=== PATIENT | female | born 1985 | race Caucasian/White ===

== ENCOUNTER 2019-05-02 16:18 | Emergency (ER) | payer MEDICAID ==
[~2019-05-02] VITALS: Ht 162.6 cm; Wt 75.0 kg
[2019-05-02 16:20] VITALS: BP 125/81
--- NOTE | 2019-05-02 16:25 | NUR ---
PATIENT AMBULATED TO ER BED 9.
--- NOTE | 2019-05-02 16:37 | NUR ---
PT C/O L LOWER GROIN PAIN X1 DAY, REPORTS 9/10 POKING PAIN. DENIES N/V/D. DENIES PMH NKA . DENIES N/V/D; SKIN IS PINK/WARM/DRY; AAOX4 WITH EVEN AND STEADY GAIT; LUNGS CLEAR BL; HR EVEN AND REGULAR; PT DENIES ANY FEVER, CP, SOB, OR COUGH AT THIS TIME; PATIENT STATES PAIN OF 9/10 AT THIS TIME; VSS; PATIENT POSITIONED FOR COMFORT; HOB ELEVATED; BEDRAILS UP X2; BED DOWN. ER MD MADE AWARE OF PT STATUS.
--- NOTE | 2019-05-02 18:15 | NUR ---
US TECH AT BEDSIDE.
[2019-05-02 18:44] LABS: BASOPHILS % (AUTO) 0.4 % (0.0-2.0); EOSINOPHILS % (AUTO) 0.5 % (0.0-4.0); HEMATOCRIT 36.1 % (36-48); HEMOGLOBIN 12.3 g/dL (12.0-16.0); LYMPHOCYTES # (AUTO) 2.8 K/uL (2.5-16.5); LYMPHOCYTES % (AUTO) 32.7 % (20.5-51.1); MEAN CORPUSCULAR HEMOGLOBIN 30 pg (27-31); MEAN CORPUSCULAR HGB CONC 34 g/dL (33-37); MEAN CORPUSCULAR VOLUME 88.8 fL (80-94); MONOCYTES # (AUTO) 0.5 K/uL (0.8-1.0); MONOCYTES % (AUTO) 5.3 % (1.7-9.3); NEUTROPHILS # (AUTO) 5.3 K/uL (1.8-7.7); NEUTROPHILS % (AUTO) 61.1 % (42.2-75.2); PLATELET COUNT (AUTO) 320 K/uL (140-450); RED BLOOD CELL COUNT(AUTO) 4.07 MIL/uL (4.20-5.40); RED CELL DISTRIBUTION WIDTH 13.1 % (11.6-13.7); WHITE BLOOD COUNT (AUTO) 8.7 K/uL (4.8-10.8)
[2019-05-02] MEDS ORDERED: KETOROLAC 15 MG/ML VIAL IM ONE (19:05)
[2019-05-02 19:06] LABS: ANION GAP 11.3 (8-16); CARBON DIOXIDE 29.3 mmol/L (21-32); CREATININE 0.6 mg/dL (0.6-1.3); POTASSIUM 3.6 mmol/L (3.5-5.1)
[2019-05-02 19:12] LABS: ALBUMIN 3.7 g/dL (3.4-5.0); TOTAL BILIRUBIN 0.3 mg/dL (0.0-1.0)
--- NOTE | 2019-05-02 19:15 | NUR ---
RECEIVED REPORT FROM BERNICE THOMPSON. TRANSFER OF CARE AT THIS TIME.
--- NOTE | 2019-05-02 19:44 | NUR ---
PT IS AWAKE, ALERT, REPORTS DECREASE IN PAIN TO 5/10. RESTING COMFORTABLY IN BED.
--- NOTE | 2019-05-02 20:37 | NUR ---
SECOND CALL TO LAB ABOUT UA STATUS. LAB STATES THEY DO NOT HAVE THE UA. I ADVISED THEM IT HAS BEEN COLLECTED SINCE 1750. LAB STATES THEY DO NOT HAVE IT. PT ADVISED TO COLLECT A NEW UA. UA WALKED OVER TO LAB.
--- NOTE | 2019-05-02 20:39 | NUR ---
NEW URINE SAMPLE COLLECTED AND WALKED TO LAB BY EMT.
[2019-05-02 20:54] LABS: APPEARANCE,URINE CLEAR (CLEAR); BILIRUBIN,URINE NEGATIVE (NEGATIVE); BLOOD, URINE 2+ (NEGATIVE); COLOR,URINE YELLOW (YELLOW); LEUKOCYTE ESTERASE ,URINE NEGATIVE (NEGATIVE); NITRITE, URINE NEGATIVE (NEGATIVE); PH,URINE 7.5 (5.0-9.0); UGLUCOSE NEGATIVE (NEGATIVE)
[2019-05-02 21:01] LABS: RBC,URINE 0-5 /HPF (0-5); WBC,URINE 0-5 /HPF (0-5)
--- NOTE | 2019-05-02 21:30 | NUR ---
Patient appears to be resting comfortably in bed. Vital Signs within normal limits. Respirations even and unlabored.
[2019-05-02 22:55] VITALS: BP 112/72
--- NOTE | 2019-05-02 22:55 | NUR ---
Patient discharged with v/s stable. Written and verbal after care instructions given and explained. Patient alert, oriented and verbalized understanding of instructions. Ambulatory with steady gait. All questions addressed prior to discharge. ID band removed. Patient advised to follow up with PMD. Rx of [place], Bactrim and Naprosyn given. Patient educated on indication of medication including possible reaction and side effects. Opportunity to ask questions provided and answered.
== END 2019-05-02 22:55 | disposition home or self-care (01) ==
LOC: MED 16:18
DX: N83.201 Unspecified ovarian cyst, right side (principal); N30.90 Cystitis, unspecified without hematuria
CPT/HCPCS: 36415; 76830; 80053; 81001; 81025; 83690; 85025; 87086; 96372; 99284; J1885; Q0092

== ENCOUNTER 2019-07-04 17:32 | Emergency (ER) | payer MEDICAID ==
[~2019-07-04] VITALS: Ht 160 cm; Wt 76.7 kg
[2019-07-04 17:50] VITALS: BP 123/75
--- NOTE | 2019-07-04 19:38 | NUR ---
CALLED FOR PT, NO ANSWER IN ER LOBBY OR IN FRONT OF ER. PT LWBS AT 1938
--- NOTE | 2019-07-04 19:45 | NUR ---
CALLED FOR PT FOR SECOND TIME, NO ANSWER IN ER LOBBY OR IN FRONT OF ER. PT LWBS AT 1938
--- NOTE | 2019-07-04 20:00 | NUR ---
CALLED FOR PT FOR THIRD TIME, NO ANSWER IN ER LOBBY OR IN FRONT OF ER. PT LWBS AT 1938
== END 2019-07-04 19:38 | disposition left against medical advice (07) ==
LOC: MED 17:32
DX: R10.32 Left lower quadrant pain (principal); R10.31 Right lower quadrant pain; Z53.21 Procedure and treatment not carried out due to patient leaving prior to being seen by health care provider
CPT/HCPCS: 81002; 81025

== ENCOUNTER 2019-08-14 08:28 | Emergency (ER) | payer MEDICAID ==
[~2019-08-14] VITALS: Ht 149.9 cm; Wt 79.4 kg
[2019-08-14 08:33] VITALS: BP 133/85
[2019-08-14] MEDS ORDERED: KETOROLAC 60 MG/2 ML VIAL IM ONE (08:45)
--- NOTE | 2019-08-14 08:55 | NUR ---
pt arrived to ed by self c/o abd pain x 1 day and left hand pain x 2days s/p mechanical fall. pt states left hand pain radiates to left shoulder and rates pain level 9/10. vs table. a &o x4. denies n,v,d. abd soft, nontender, flat. left hand sowllen and red. left hand has cms intact. no deformity noted. pmh: denies nka.
--- NOTE | 2019-08-14 08:56 | NUR ---
radiology at bedside to picker and sorter load and unload pt. trasnferred on wheelchair to radiology
[2019-08-14 09:37] VITALS: BP 133/85
--- NOTE | 2019-08-14 09:38 | NUR ---
Patient discharged with v/s stable. Written and verbal after care instructions given and explained. Patient alert, oriented and verbalized understanding of instructions. Ambulatory with steady gait. All questions addressed prior to discharge. ID band removed. Patient advised to follow up with PMD. Rx of motrin, lactulose, mineral oil given. Patient educated on indication of medication including possible reaction and side effects. Opportunity to ask questions provided and answered.
== END 2019-08-14 09:38 | disposition home or self-care (01) ==
LOC: MED 08:28
DX: S63.92XA Sprain of unspecified part of left wrist and hand, initial encounter (principal); S40.012A Contusion of left shoulder, initial encounter; K59.00 Constipation, unspecified; W01.0XXA Fall on same level from slipping, tripping and stumbling without subsequent striking against object, initial encounter; Y93.89 Activity, other specified; Y92.89 Other specified places as the place of occurrence of the external cause; Y99.8 Other external cause status
CPT/HCPCS: 73130; 74018; 81002; 81025; 96372; 99283; J1885

== ENCOUNTER 2019-10-30 19:09 | Emergency (ER) | payer MEDICAID ==
[~2019-10-30] VITALS: Ht 165.1 cm; Wt 77.1 kg
--- NOTE | 2019-10-30 19:24 | NUR ---
URINE SAMPLE COLLECTED.
--- NOTE | 2019-10-30 19:25 | NUR ---
AMB TO LOBBY WITH DAUGHTER.
[2019-10-30 19:29] VITALS: BP 104/54
--- NOTE | 2019-10-30 19:30 | NUR ---
PATIENT AMBULATED TO BED 3.
--- NOTE | 2019-10-30 19:30 | NUR ---
34 Y/O FEMALE BIB DAUGHTER WITH REPORTS OF SUDDEN ONSET OF LEFT FLANK PAIN AROUND 1200 TODAY. STATES IT IS A STABBING PAIN. DENIES PAINFUL URINATION OR FREQUENCY. PAIN IS AN ACUTE 5/10 PAIN. DENIES N/V/D. BREATHING UNLABORED AND SYMMETRICAL. BOWEL SOUNDS ON ALL FOUR QUADRANTS. NO TENDERNESS UPON PALPATION. ERMD MADE AWARE OF STATUS. SIDE RAILSX1. WILL CONTINUE TO MONITOR. PMH:DENIES RX:DENIES NKDA
[2019-10-30 20:33] LABS: BASOPHILS % (AUTO) 0.4 % (0.0-2.0); EOSINOPHILS # (AUTO) 0.1 K/uL (0-0.4); EOSINOPHILS % (AUTO) 0.8 % (0.0-4.0); HEMATOCRIT 35.6 % (36-48); HEMOGLOBIN 12.3 g/dL (12.0-16.0); LYMPHOCYTES # (AUTO) 3.2 K/uL (2.5-16.5); LYMPHOCYTES % (AUTO) 31.4 % (20.5-51.1); MEAN CORPUSCULAR HEMOGLOBIN 31 pg (27-31); MEAN CORPUSCULAR HGB CONC 35 g/dL (33-37); MEAN CORPUSCULAR VOLUME 89.4 fL (80-94); MONOCYTES # (AUTO) 0.7 K/uL (0.8-1.0); MONOCYTES % (AUTO) 6.7 % (1.7-9.3); NEUTROPHILS # (AUTO) 6.2 K/uL (1.8-7.7); NEUTROPHILS % (AUTO) 60.7 % (42.2-75.2); PLATELET COUNT (AUTO) 327 K/uL (140-450); RED BLOOD CELL COUNT(AUTO) 3.98 MIL/uL (4.20-5.40); RED CELL DISTRIBUTION WIDTH 13.2 % (11.6-13.7); WHITE BLOOD COUNT (AUTO) 10.3 K/uL (4.8-10.8)
[2019-10-30 20:38] LABS: APPEARANCE,URINE CLEAR (CLEAR); BILIRUBIN,URINE NEGATIVE (NEGATIVE); BLOOD, URINE 3+ (NEGATIVE); COLOR,URINE YELLOW (YELLOW); LEUKOCYTE ESTERASE ,URINE NEGATIVE (NEGATIVE); NITRITE, URINE POSITIVE (NEGATIVE); UGLUCOSE NEGATIVE (NEGATIVE)
[2019-10-30 20:46] LABS: WBC,URINE 0-5 /HPF (0-5)
[2019-10-30] MEDS ORDERED: ACETAMINOPHEN EXTRA STRENGTH 500 MG TAB PO ONE (21:30)
[2019-10-30 22:16] VITALS: BP 104/54
--- NOTE | 2019-10-30 22:16 | NUR ---
Patient discharged with v/s stable. Written and verbal after care instructions given and explained. Patient verbalized understanding. Ambulatory with steady gait. All questions addressed prior to discharge. Advised to follow up with PMD. Addendum: 10/31/19 at 0132 by ALETHEA DISCHARGED BY DR. BEARDEN.
== END 2019-10-30 22:16 | disposition home or self-care (01) ==
LOC: MED 19:09
DX: O26.91 Pregnancy related conditions, unspecified, first trimester (principal); S39.012A Strain of muscle, fascia and tendon of lower back, initial encounter; Z90.49 Acquired absence of other specified parts of digestive tract
CPT/HCPCS: 36415; 76801; 81001; 81025; 84702; 85025; 99284; Q0092

== ENCOUNTER 2020-01-08 19:27 | Emergency (ER) | payer MEDICAID ==
[~2020-01-08] VITALS: Ht 165.1 cm; Wt 79.8 kg
[2020-01-08 19:40] VITALS: BP 129/79
--- NOTE | 2020-01-08 19:43 | NUR ---
TO LOBBY A/W BED AMBULATORY
--- NOTE | 2020-01-08 20:40 | NUR ---
PT AMBULATED TO BED 12 WITH FAMILY
--- NOTE | 2020-01-08 20:52 | NUR ---
35 YO FEMALE CO LOWER ABD PAIN FOR 2D. PAIN IS 6/10 AND STABBING, NON RADIATING. PT IS CURRENTLY 16 WEEKS . NO VAG BLEEDING, BUT PT DOES HAVE YELLOW DISCHARGE FOR ABOUT 2 WEEKS. PT IS TAKING VITAMINS. NO MED HX.
--- NOTE | 2020-01-08 22:35 | NUR ---
US AT BEDSIDE
--- NOTE | 2020-01-08 22:37 | NUR ---
PT SLEEPING IN BED WITH BOTH SIDE RAILS UP FOR SAFETY. VSS
[2020-01-08 22:40] LABS: APPEARANCE,URINE CLOUDY (CLEAR); BILIRUBIN,URINE NEGATIVE (NEGATIVE); BLOOD, URINE 2+ (NEGATIVE); COLOR,URINE YELLOW (YELLOW); LEUKOCYTE ESTERASE ,URINE NEGATIVE (NEGATIVE); NITRITE, URINE NEGATIVE (NEGATIVE); UGLUCOSE NEGATIVE (NEGATIVE)
[2020-01-08 23:02] LABS: BASOPHILS % (AUTO) 0.1 % (0.0-2.0); EOSINOPHILS % (AUTO) 0.5 % (0.0-4.0); HEMATOCRIT 34.7 % (36-48); HEMOGLOBIN 11.9 g/dL (12.0-16.0); LYMPHOCYTES # (AUTO) 1.1 K/uL (2.5-16.5); LYMPHOCYTES % (AUTO) 12.7 % (20.5-51.1); MEAN CORPUSCULAR HEMOGLOBIN 31 pg (27-31); MEAN CORPUSCULAR HGB CONC 34 g/dL (33-37); MEAN CORPUSCULAR VOLUME 88.9 fL (80-94); MONOCYTES # (AUTO) 0.4 K/uL (0.8-1.0); MONOCYTES % (AUTO) 4.8 % (1.7-9.3); NEUTROPHILS # (AUTO) 7.3 K/uL (1.8-7.7); NEUTROPHILS % (AUTO) 81.9 % (42.2-75.2); PLATELET COUNT (AUTO) 283 K/uL (140-450); RED CELL DISTRIBUTION WIDTH 13.2 % (11.6-13.7); WHITE BLOOD COUNT (AUTO) 8.9 K/uL (4.8-10.8)
[2020-01-08 23:38] LABS: ALBUMIN 3.1 g/dL (3.4-5.0); ANION GAP 9.6 (8-16); CARBON DIOXIDE 27.8 mmol/L (21-32); CREATININE 0.5 mg/dL (0.6-1.3); POTASSIUM 3.4 mmol/L (3.5-5.1); TOTAL BILIRUBIN 0.3 mg/dL (0.0-1.0)
[2020-01-09 00:03] LABS: RBC,URINE 11-20 (MOD) /HPF (0-5)
[2020-01-09 00:04] LABS: CALCIUM OXALATE CRYSTALS,UR >100 /HPF (None Seen); WBC,URINE 0-5 /HPF (0-5)
[2020-01-09 00:20] VITALS: BP 129/79
--- NOTE | 2020-01-09 00:22 | NUR ---
ALLA DISCHARED PT. ALL PT INSTRUCTIONS AND TEACHING PROVIDED BY DR BEARDEN
== END 2020-01-08 23:02 | disposition home or self-care (01) ==
LOC: MED 19:27
DX: O26.892 Other specified pregnancy related conditions, second trimester (principal); O21.8 Other vomiting complicating pregnancy; R10.30 Lower abdominal pain, unspecified; Z3A.16 16 weeks gestation of pregnancy; Z90.49 Acquired absence of other specified parts of digestive tract
CPT/HCPCS: 36415; 76805; 80053; 81001; 84702; 85025; 86900; 86901; 87086; 99284; Q0092; 81002

== ENCOUNTER 2020-01-14 06:08 | Emergency (ER) | payer MEDICAID ==
[~2020-01-14] VITALS: Ht 165.1 cm; Wt 80.3 kg
[2020-01-14 06:15] VITALS: BP 109/66
--- NOTE | 2020-01-14 06:15 | NUR ---
to bed # 12 ambulatory
--- NOTE | 2020-01-14 06:32 | NUR ---
14 WEEK OLD FEMALE REPORTS HEAVY VAGINAL BLEEDING STARTING AT 0550. STATES SHE HAS ALREADY BLEED THROUGH ONE PAD AND IT GOT ALL OVER HER PANTS. REPORTS LARGE CLOTS. LOWER ABD PAIN REPORTED 05/14. NO BACK PAIN REPORTED. VSS. ON MONITOR. DAUGHTER AT BEDSIDE. SITTING UP IN BED
--- NOTE | 2020-01-14 07:05 | NUR ---
RECEIVED REPORT FROM BERNICE ROMO
--- NOTE | 2020-01-14 07:11 | NUR ---
REPORT GIVEN TO BERNICE MANE. PATIENT SUPINE IN BED. LAB AT BEDSIDE. VSS ON MONITOR.
[2020-01-14 07:26] LABS: APPEARANCE,URINE CLEAR (CLEAR); BILIRUBIN,URINE NEGATIVE (NEGATIVE); BLOOD, URINE 3+ (NEGATIVE); COLOR,URINE YELLOW (YELLOW); LEUKOCYTE ESTERASE ,URINE TRACE (NEGATIVE); NITRITE, URINE NEGATIVE (NEGATIVE); UGLUCOSE NEGATIVE (NEGATIVE)
[2020-01-14 07:46] LABS: BASOPHILS % (AUTO) 0.3 % (0.0-2.0); EOSINOPHILS # (AUTO) 0.1 K/uL (0-0.4); EOSINOPHILS % (AUTO) 0.8 % (0.0-4.0); HEMOGLOBIN 11.1 g/dL (12.0-16.0); LYMPHOCYTES # (AUTO) 2.2 K/uL (2.5-16.5); LYMPHOCYTES % (AUTO) 25.3 % (20.5-51.1); MEAN CORPUSCULAR HEMOGLOBIN 31 pg (27-31); MEAN CORPUSCULAR HGB CONC 35 g/dL (33-37); MEAN CORPUSCULAR VOLUME 89.7 fL (80-94); MONOCYTES # (AUTO) 0.5 K/uL (0.8-1.0); MONOCYTES % (AUTO) 5.6 % (1.7-9.3); PLATELET COUNT (AUTO) 271 K/uL (140-450); RED BLOOD CELL COUNT(AUTO) 3.56 MIL/uL (4.20-5.40); RED CELL DISTRIBUTION WIDTH 13.2 % (11.6-13.7); WHITE BLOOD COUNT (AUTO) 8.8 K/uL (4.8-10.8)
[2020-01-14 07:47] LABS: RBC,URINE 0-5 /HPF (0-5)
--- NOTE | 2020-01-14 09:07 | NUR ---
PT RESTING IN BED, NO NEW NEEDS AT THIS TIME. PAIN 3/10, LOWER ABD
[2020-01-14 09:15] VITALS: BP 102/53
--- NOTE | 2020-01-14 09:29 | NUR ---
Patient discharged with v/s stable. Written and verbal after care instructions given and explained. Patient alert, oriented and verbalized understanding of instructions. Ambulatory with steady gait. All questions addressed prior to discharge. ID band removed. Patient advised to follow up with PMD.
== END 2020-01-14 09:29 | disposition home or self-care (01) ==
LOC: MED 06:08
DX: O20.0 Threatened abortion (principal); Z3A.14 14 weeks gestation of pregnancy; Z90.49 Acquired absence of other specified parts of digestive tract
CPT/HCPCS: 36415; 76805; 81001; 84702; 85025; 86900; 86901; 87086; 99284; Q0092

== ENCOUNTER 2022-03-10 15:03 | Emergency (ER) | payer MEDICAID ==
[~2022-03-10] VITALS: Ht 165.1 cm; Wt 78.5 kg
[2022-03-10 15:10] VITALS: BP 107/58
--- NOTE | 2022-03-10 15:12 | NUR ---
PT AMBULATED TO BED 2
--- NOTE | 2022-03-10 15:16 | NUR ---
37 Y/O FEMALE C/O VAGINAL BLEEDING WITH MODERATE CLOTS [id number]. ABDOMEN IS TENDER TO PALPATION. PT STATES PAIN IS RATED 8/10. PT STATES SHE HAS AN IUD. PT DENIES N/V. DENIES FEVER/CHILLS. PT DENIES MEDICATION PRIOR TO ARRIVAL. PT IS ALERT AND ORIENTED X4. BED LOCKED IN LOWEST POSITION. SIDE RAIL X1. DENIES PMH NKA
[2022-03-10] MEDS ORDERED: NACL 0.9% 1,000 ML IV SCH (15:40)
[2022-03-10] MEDS ORDERED: KETOROLAC 30 MG/ML VIAL IVP ONE (15:40)
--- NOTE | 2022-03-10 15:59 | NUR ---
PT TAKEN TO CT VIA WC
--- NOTE | 2022-03-10 16:02 | NUR ---
BLOODWORK COLLECTED AND HANDED TO LAB
[2022-03-10 16:24] LABS: BASOPHILS % (AUTO) 0.3 % (0.0-2.0); EOSINOPHILS % (AUTO) 0.2 % (0.0-4.0); HEMATOCRIT 36.1 % (36-48); HEMOGLOBIN 11.9 g/dL (12.0-16.0); LYMPHOCYTES # (AUTO) 2.2 K/uL (2.5-16.5); LYMPHOCYTES % (AUTO) 22.7 % (20.5-51.1); MEAN CORPUSCULAR HEMOGLOBIN 29 pg (27-31); MEAN CORPUSCULAR HGB CONC 33 g/dL (33-37); MEAN CORPUSCULAR VOLUME 86.9 fL (80-94); MONOCYTES # (AUTO) 0.5 K/uL (0.8-1.0); MONOCYTES % (AUTO) 5.2 % (1.7-9.3); NEUTROPHILS # (AUTO) 6.8 K/uL (1.8-7.7); NEUTROPHILS % (AUTO) 71.6 % (42.2-75.2); PLATELET COUNT (AUTO) 324 K/uL (140-450); RED BLOOD CELL COUNT(AUTO) 4.15 MIL/uL (4.20-5.40); RED CELL DISTRIBUTION WIDTH 14.1 % (11.6-13.7); WHITE BLOOD COUNT (AUTO) 9.5 K/uL (4.8-10.8)
[2022-03-10 16:50] LABS: ALBUMIN 3.5 g/dL (3.4-5.0); ANION GAP 9.1 (8-16); CARBON DIOXIDE 28.5 mmol/L (21-32); CREATININE 0.7 mg/dL (0.6-1.3); POTASSIUM 3.6 mmol/L (3.5-5.1); TOTAL BILIRUBIN 0.3 mg/dL (0.0-1.0)
[2022-03-10] MEDS ORDERED: MEDR10TA PO (16:52)
[2022-03-10] MEDS ORDERED: ACET-8386 PO (16:52)
[2022-03-10] MEDS ORDERED: IBUP-2213 PO (16:52)
[2022-03-10 17:49] VITALS: BP 107/58
--- NOTE | 2022-03-10 17:50 | NUR ---
Patient discharged with v/s stable. Written and verbal after care instructions given and explained. Patient alert, oriented and verbalized understanding of instructions. Ambulatory with steady gait. All questions addressed prior to discharge. ID band removed. Patient advised to follow up with PMD. Rx of HYDROCODONE/IBUPROFEN/ PROVERA given. Patient educated on indication of medication including possible reaction and side effects. Opportunity to ask questions provided and answered.
== END 2022-03-10 18:02 | disposition home or self-care (01) ==
LOC: MED 15:03
DX: N93.9 Abnormal uterine and vaginal bleeding, unspecified (principal); R10.31 Right lower quadrant pain; Z90.49 Acquired absence of other specified parts of digestive tract; Z98.890 Other specified postprocedural states; Z79.899 Other long term (current) drug therapy
CPT/HCPCS: 36415; 74176; 80053; 81002; 81025; 83690; 85025; 96361; 96374; 99284; J1885; J7030

== ENCOUNTER 2023-02-18 19:09 | Emergency (ER) | payer MEDICAID ==
[~2023-02-18] VITALS: Ht 162.6 cm; Wt 81.6 kg
[~2023-02-18 19:09] MED LIST: ACET-8905 PO; IBUP-2213 PO; MEDR10TA PO
[2023-02-18 19:27] VITALS: BP 107/84
--- NOTE | 2023-02-18 19:35 | NUR ---
pt to lobby
[2023-02-18] MEDS ORDERED: DICYCLOMINE HCL LIQUID 20 MG, ALUMINUM HYD/MAG/SIMETHICONE 30 ML, LIDOCAINE VISCOUS 2% ... PO ONE ×3 (20:20)
[2023-02-18] MEDS ORDERED: ALUMINUM HYD/MAG/SIMETHICONE 30 ML UDC ONE (20:22)
[2023-02-18] MEDS ORDERED: DICYCLOMINE HCL LIQUID 10 MG/5 ML UDC ONE (20:22)
--- NOTE | 2023-02-18 20:43 | NUR ---
PT RETURN FROM RADIOLOGY
[2023-02-18 20:55] LABS: BASOPHILS % (AUTO) 0.2 % (0.0-2.0); EOSINOPHILS % (AUTO) 0.1 % (0.0-4.0); HEMATOCRIT 39.9 % (36-48); HEMOGLOBIN 13.6 g/dL (12.0-16.0); LYMPHOCYTES # (AUTO) 0.6 K/uL (2.5-16.5); LYMPHOCYTES % (AUTO) 5.4 % (20.5-51.1); MEAN CORPUSCULAR HEMOGLOBIN 30 pg (27-31); MEAN CORPUSCULAR HGB CONC 34 g/dL (33-37); MEAN CORPUSCULAR VOLUME 88.1 fL (80-94); MONOCYTES # (AUTO) 0.4 K/uL (0.8-1.0); MONOCYTES % (AUTO) 3.1 % (1.7-9.3); NEUTROPHILS # (AUTO) 10.2 K/uL (1.8-7.7); NEUTROPHILS % (AUTO) 91.2 % (42.2-75.2); PLATELET COUNT (AUTO) 336 K/uL (140-450); RED BLOOD CELL COUNT(AUTO) 4.53 MIL/uL (4.20-5.40); RED CELL DISTRIBUTION WIDTH 13.5 % (11.6-13.7); WHITE BLOOD COUNT (AUTO) 11.2 K/uL (4.8-10.8)
--- NOTE | 2023-02-18 21:06 | NUR ---
PT TAKEN TO BED 7
[2023-02-18 21:07] LABS: APPEARANCE,URINE CLEAR (CLEAR); BILIRUBIN,URINE 1+ (NEGATIVE); BLOOD, URINE 3+ (NEGATIVE); COLOR,URINE YELLOW (YELLOW); LEUKOCYTE ESTERASE ,URINE NEGATIVE (NEGATIVE); NITRITE, URINE NEGATIVE (NEGATIVE); UGLUCOSE NEGATIVE (NEGATIVE)
[2023-02-18 21:15] LABS: ANION GAP 13.1 (8-16); CARBON DIOXIDE 27.1 mmol/L (21-32); CREATININE 0.8 mg/dL (0.6-1.3); POTASSIUM 4.2 mmol/L (3.5-5.1); TOTAL BILIRUBIN 0.5 mg/dL (0.0-1.0)
--- NOTE | 2023-02-18 21:15 | NUR ---
Patient received on bed lying comfortably and awake. Alert and oriented x4. No acute distress. Complained of abdominal pain with scale of 9/10. Respirations even and unlabored.
[2023-02-18] MEDS ORDERED: KETOROLAC 30 MG/ML VIAL IM ONE (21:45)
[2023-02-18] MEDS ORDERED: ONDANSETRON 4 MG ODT PO ONE (21:45)
[2023-02-18 21:47] LABS: RBC,URINE 0-5 /HPF (0-5); WBC,URINE NONE SEEN /HPF (0-5)
[2023-02-18 21:48] LABS: URINE AMORPHOUS URATE 3+ /HPF (None Seen)
[2023-02-18] MEDS ORDERED: KETOROLAC 30 MG/ML VIAL ONE (21:50)
[2023-02-18] MEDS ORDERED: IBUP-2213 PO (22:13)
[2023-02-18] MEDS ORDERED: ONDA-188 SL (22:13)
[2023-02-18] MEDS ORDERED: ACET-10509 PO (22:13)
[2023-02-18 22:23] VITALS: BP 115/84
--- NOTE | 2023-02-18 22:23 | NUR ---
Patient discharged with v/s stable. Written and verbal after care instructions given and explained. Patient alert, oriented and verbalized understanding of instructions. Ambulatory with steady gait. All questions addressed prior to discharge. ID band removed. Patient advised to follow up with PMD. Rx of Tylenol, Ibuprofen and Zofran given. Patient educated on indication of medication including possible reaction and side effects. Opportunity to ask questions provided and answered.
== END 2023-02-18 22:23 | disposition home or self-care (01) ==
LOC: MED 19:09
DX: A08.4 Viral intestinal infection, unspecified (principal); Z79.899 Other long term (current) drug therapy; Z79.891 Long term (current) use of opiate analgesic; Z79.1 Long term (current) use of non-steroidal anti-inflammatories (NSAID)
CPT/HCPCS: 36415; 76705; 80053; 81001; 81025; 83690; 85025; 96372; 99285; J1885; Q0092; Q0162

== ENCOUNTER 2023-09-22 17:26 | Emergency (ER) | payer MEDICAID ==
[~2023-09-22] VITALS: Ht 165.1 cm; Wt 84.0 kg
[~2023-09-22 17:26] MED LIST changes: +ACET-10509 PO; +ONDA-188 SL
[2023-09-22 17:34] VITALS: BP 119/76; PULSE 66; RESP 20; TEMP 97; O2SAT 98
[2023-09-22] MEDS ORDERED: KETOROLAC 30 MG/ML VIAL IM ONE (18:40)
[2023-09-22 19:04] LABS: APPEARANCE,URINE CLEAR (CLEAR); BILIRUBIN,URINE NEGATIVE (NEGATIVE); BLOOD, URINE 3+ (NEGATIVE); COLOR,URINE YELLOW (YELLOW); LEUKOCYTE ESTERASE ,URINE TRACE (NEGATIVE); NITRITE, URINE NEGATIVE (NEGATIVE); PROTEIN,URINE TRACE (NEGATIVE); UGLUCOSE NEGATIVE (NEGATIVE); UROBILINOGEN,URINE 0.2 EU/dL (0.2 - 1)
[2023-09-22 19:27] LABS: BACTERIA,URINE FEW /HPF (None Seen); RBC,URINE 11-20 (MOD) /HPF (0-5); SQUAMOUS EPITHELIAL CELL,UR 4-10 (MOD) /LPF (0-3 (FEW)); WBC,URINE 0-5 /HPF (0-5)
[2023-09-22 19:28] LABS: MUCUS,URINE None Seen /LPF (None Seen); TRICHOMONAS,URINE None Seen /HPF (None Seen); WHITE BLOOD CELL CASTS,URINE None Seen /LPF (None Seen); YEAST,URINE None Seen /HPF (None Seen)
[2023-09-22 20:07] LABS: BASOPHILS % (AUTO) 0.5 % (0.0-2.0); EOSINOPHILS # (AUTO) 0.1 K/uL (0-0.4); EOSINOPHILS % (AUTO) 1.3 % (0.0-4.0); HEMATOCRIT 37.8 % (36-48); HEMOGLOBIN 12.6 g/dL (12.0-16.0); LYMPHOCYTES % (AUTO) 34.1 % (20.5-51.1); MEAN CORPUSCULAR HEMOGLOBIN 30 pg (27-31); MEAN CORPUSCULAR HGB CONC 33 g/dL (33-37); MEAN CORPUSCULAR VOLUME 89.1 fL (80-94); MONOCYTES # (AUTO) 0.3 K/uL (0.8-1.0); MONOCYTES % (AUTO) 3.7 % (1.7-9.3); NEUTROPHILS # (AUTO) 5.3 K/uL (1.8-7.7); NEUTROPHILS % (AUTO) 60.4 % (42.2-75.2); PLATELET COUNT (AUTO) 350 K/uL (140-450); RED BLOOD CELL COUNT(AUTO) 4.24 MIL/uL (4.20-5.40); RED CELL DISTRIBUTION WIDTH 13.5 % (11.6-13.7); WHITE BLOOD COUNT (AUTO) 8.8 K/uL (4.8-10.8)
[2023-09-22 20:22] LABS: ALBUMIN 3.7 g/dL (3.4-5.0); ANION GAP 12.3 (8-16); CALCIUM 8.6 mg/dL (8.5-10.1); CARBON DIOXIDE 28.6 mmol/L (21-32); CREATININE 0.7 mg/dL (0.6-1.3); POTASSIUM 3.9 mmol/L (3.5-5.1); TOTAL BILIRUBIN 0.1 mg/dL (0.0-1.0); TOTAL PROTEIN, SERUM 7.7 g/dL (6.4-8.2)
[2023-09-22] MEDS ORDERED: KETOROLAC 30 MG/ML VIAL ONE (20:37)
[2023-09-22] MEDS ORDERED: IBUP-2213 PO (21:12)
[2023-09-22 21:28] VITALS: BP 119/76; PULSE 66; RESP 20; TEMP 97; O2SAT 98
== END 2023-09-22 21:28 | disposition home or self-care (01) ==
LOC: MED 17:26
DX: N83.201 Unspecified ovarian cyst, right side (principal); N93.8 Other specified abnormal uterine and vaginal bleeding; Z79.899 Other long term (current) drug therapy; Z79.1 Long term (current) use of non-steroidal anti-inflammatories (NSAID)
CPT/HCPCS: 36415; 76830; 80053; 81001; 81025; 83690; 85025; 96372; 99285; J1885; Q0092